=== PATIENT | male | born 1950 | race Caucasian/White ===

== ENCOUNTER → 2018-05-27 | Outpatient (CLI) | payer MEDICARE ==
--- NOTE | 2018-05-27 11:18 | KCIC ---
EXAM: Right wrist, 3 views. HISTORY: Pain. COMPARISON: None. FINDINGS: 3 views of the right wrist are obtained. 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 There is no acute fracture. The alignment and joint spaces are unremarkable. There is no foreign body. IMPRESSION: No acute osseous finding. Electronically signed by: Audrey Martin MD (05/27/2018 11:14 AM) [id number]
== END | disposition home or self-care (01) ==
LOC: KCIC 10:51
PROVIDERS: ATTEND Physician Assistant Medical
DX: S52.611K Displaced fracture of right ulna styloid process, subsequent encounter for closed fracture with nonunion (principal); X58.XXXD Exposure to other specified factors, subsequent encounter
CPT/HCPCS: 73110

== ENCOUNTER → 2019-06-29 | Outpatient (CLI) | payer MEDICARE ==
--- NOTE | 2019-06-29 12:50 | KCIC ---
EXAM: CHEST 2 VIEWS. HISTORY: Cough. COMPARISON: 07/17/2015. FINDINGS: Frontal and lateral views of the chest are obtained. There is a focal airspace opacity in the left upper lobe adjacent to the hilum. Mild infiltrate is suspected in the lower lobes on the lateral projection. There is no pneumothorax or pleural effusion. The heart is not enlarged. IMPRESSION: 1. New atelectasis or infiltrate in the left upper lobe. Possible mild infiltrates in the lower lobes. Follow-up to resolution is recommended to exclude an underlying lesion. Electronically signed by: Tez Collins MD (06/29/2019 12:46 PM) [facility]
== END | disposition home or self-care (01) ==
LOC: KCIC 11:37
PROVIDERS: ATTEND Family Medicine
DX: R05 Cough (principal)
CPT/HCPCS: 71046

== ENCOUNTER → 2021-06-07 | Outpatient (CLI) | payer MEDICARE ==
--- NOTE | 2021-06-07 18:12 | KCIC ---
XR HIP (WITH OR WITHOUT PELVIS)LEFT 1 VIEW History: Left hip pain for 6 weeks. Comparison: None. Technique: AP pelvis with cone-down frog-leg lateral view of the left hip. Findings: Decreased osseous mineralization. No fracture or dislocation. Mild femoral acetabular joint space evaristo rowing and marginal osteophytes. Degenerative changes lower lumbar spine and sacroiliac joints. Soft tissues are unremarkable. Impression: 1. Mild degenerative changes of the left hip without acute osseous abnormality. Electronically signed by: Gurwinder Morfin MD (06/07/2021 6:10 PM) [id number]
== END ==
LOC: KCIC 10:05
PROVIDERS: ATTEND Family Medicine
DX: M16.12 Unilateral primary osteoarthritis, left hip (principal); M85.88 Other specified disorders of bone density and structure, other site; M25.852 Other specified joint disorders, left hip; M47.816 Spondylosis without myelopathy or radiculopathy, lumbar region; M46.1 Sacroiliitis, not elsewhere classified
CPT/HCPCS: 73501